=== PATIENT | female | born 1975 | race Caucasian/White ===

== ENCOUNTER 2017-12-17 09:09 | Emergency (ER) | payer MEDICAID ==
--- NOTE | 2017-12-17 09:55 | EDPHY ---
H & P Stated Complaint: méndez for several days/states has lump on top of head but is unsure how sh got Time Seen by Provider: 12/17/17 09:41 HPI/ROS: CHIEF COMPLAINT: Headache x4 days HISTORY OF PRESENT ILLNESS: 42-year-old homeless female currently visiting from [place], returning in a few days, history of chronic intermittent headaches, complaining of mid vertex headache "feels like there is a cylinder in my head". States that it feels similar to prior head injuries but she denies head injury. Denies palpable abnormality. Denies: Visual acuity changes, photophobia, audio phobia, nausea, vomiting, midline C-spine pain, peripheral paresthesia, weakness, numbness, gait instability, slurred speech PRIMARY CARE PROVIDER: REVIEW OF SYSTEMS: A ten point review of systems was performed and is negative with the exception of the items mentioned in the HPI PAST MEDICAL & SURGICAL HISTORY: Chronic intermittent headache. No exogenous estrogen use. SOCIAL HISTORY: Homeless. Nonsmoker. No drug or alcohol use. Returning to [place] in 2 days. PHYSICAL EXAM (Prior to examination, patient consented to physical exam, hands were washed and my usual and customary physical exam procedures followed) 1) GENERAL: Well-developed, well-nourished, alert and oriented. Appears to be in no acute distress. 2) HEAD: Normocephalic, atraumatic 3) HEENT: Pupils equal, round, reactive to light bilaterally. Sclera anicteric. Nasopharynx, oropharynx, clear, no lesions. Ears bilaterally with normal tympanic membranes. 4) NECK: Full range of motion, no meningeal signs. 5) LUNGS: Clear auscultation bilaterally, no wheezes, no rhonchi, no retractions. 6) HEART: Regular rate and rhythm, no murmur, no heave, no gallop. 7) ABDOMEN: No guarding, no rebound, no focal tenderness, negative McBurney's, negative Youngblood's, negative Rovsing's, negative peritoneal sign, 8) MUSCULOSKELETAL: Moving all extremities, no focal areas of tenderness, no obvious trauma. No peripheral edema or discoloration. 9) BACK: No CVA tenderness, no midline vertebral tenderness, no fluctuance, no step-off, no obvious trauma, no visual or palpable abnormality. 10) SKIN: No rash, no petechiae. 11) Psychiatric: Patient is oriented X 3, there is no agitation. 12) NEURO: Awake, alert, and oriented to person, place and time. Answers questions appropriately. There were no obvious focal neurologic abnormalities. No cerebellar dysfunction. Cranial nerves 2 through to 12 intact. Normal steady gait. Upper and lower extremities bilaterally with strength 5 / 5, reflexes 2+. DIFFERENTIAL DIAGNOSIS: In no particular order, including but not limited to subarachnoid hemorrhage, migraine headache, tension headache and infectious causes such as meningitis, pharyngitis and sinusitis. The patient understands that this diagnosis is provisional and can never be 100% accurate. Usual and customary warnings were given concerning the clinical impression and all the patient's questions were answered. The patient was instructed to return to the emergency department should her symptoms worsen or return, or develop any new symptoms, otherwise to followup as directed in discharge instructions. This is a partial list of diagnoses considered. These considerations are based on history, physical exam, past history and reassessment. - Personal History LMP (Females 10-55): 22-28 Days Ago Current Tetanus Diphtheria and Acellular Pertussis (TDAP): No - Medical/Surgical History Hx Asthma: No Hx Chronic Respiratory Disease: No Hx Diabetes: No Hx Cardiac Disease: No Hx Renal Disease: No Hx Cirrhosis: No Hx Alcoholism: No Hx HIV/AIDS: No Hx Splenectomy or Spleen Trauma: No Other PMH: denies - Social History Smoking Status: Never smoked Constitutional: Initial Vital Signs Temperature (C) 36.6 C 12/17/17 09:12 Heart Rate 70 12/17/17 09:12 Respiratory Rate 17 12/17/17 09:12 Blood Pressure 135/84 H 12/17/17 09:12 O2 Sat (%) 98 12/17/17 09:12 O2 Delivery Mode Room Air Allergies/Adverse Reactions: No Known Allergies Allergy (Unverified 12/17/17 09:12) Home Medications: Medication Instructions Recorded oxyCODONE/APAP 5/325 [Percocet 1 tab PO Q6 #3 tab 12/17/17 5/325] Medical Decision Making - Diagnostics Imaging Results: Imaging Impressions Head CT 12/17/17 09:52 Impression: Head CT within normal limits. Results called and discussed with Daisha Sanchez at 12/17/2017 10:55 General information for patients regarding this examination can be found at [email or web address]. If you have questions or comments about this report, please contact me at (hospital) or [phone] (cell). Imaging: Discussed imaging studies w/ director call Radiologist ED Course/Re-evaluation: 9:52 a.m.: Patient has a nonfocal neurologic exam with no evidence of trauma. I do not identify definitive indication for imaging studies however she is quite insistent that she wants CT of her head. Indications risks benefits were discussed with the patient. She consents. I believe her to have decision- making capacity. I have offered analgesia which she declines. 9:59 a.m.: Patient requesting analgesia. I offered IV or IM medication which she declines. Will administer oral Tylenol and Motrin. 11:01 a.m.: Re-evaluation, discussed her negative imaging. She notes continued pain after Tylenol and Motrin. She remains with a nonfocal exam. Offered further analgesia which she declines. She requests a prescription. This time I do not think that more advanced imaging such as MRI or contrast CT is indicated. Have recommended she follow up with her PCP when she returns to [place] in a few days. The meantime she has been given usual and customary head ache precautions instructions. She feels comfortable being discharged. All questions and concerns addressed by myself. I believe her to have decision- making capacity. - Data Points Medications Given: Discontinued Medications Acetaminophen (Tylenol) 1,000 mg PO EDNOW ONE Stop: 12/17/17 10:00 Last Admin: 12/17/17 10:08 Dose: 1,000 mg Ibuprofen (Motrin) 800 mg PO EDNOW ONE Stop: 12/17/17 10:01 Last Admin: 12/17/17 10:08 Dose: 800 mg Departure - Departure Disposition: Home, Routine, Self-Care Clinical Impression: Headache Qualifiers: Headache type: unspecified Headache chronicity pattern: acute headache Intractability: intractable Qualified Code(s): R51 - Headache Condition: Good Instructions: Acute Headache (ED) Additional Instructions: THANK YOU FOR YOUR VISIT TO OUR EMERGENCY DEPARTMENT (ED). YOU WERE SEEN TODAY BECAUSE OF A HEADACHE. YOU MAY HAVE HAD LAB TESTS, A CT SCAN, MRI OR EVEN A LUMBAR PUNCTURE (COMMONLY REFERRED TO A SPINAL TAP). WE CANNOT ALWAYS FIND THE EXACT CAUSE OF YOUR SYMPTOMS DURING YOUR VISIT TO THE ED. RETURN TO THE ED IMMEDIATELY IF YOUR HEADACHE WORSENS, IF YOU DEVELOP A FEVER, NECK PAIN OR NECK STIFFNESS, OR IF YOU BECOME CONFUSED OR ABNORMALLY DROWSY. Referrals: [facility],. [Clinic] - 1-2 days without fail Prescriptions: oxyCODONE/APAP 5/325 [Percocet 5/325] 1 tab PO Q6 #3 tab
[2017-12-17] MEDS ORDERED: ACETAMINOPHEN 500 MG TAB PO ONE (09:59)
[2017-12-17] MEDS ORDERED: IBUPROFEN 800 MG TAB PO ONE (10:00)
[2017-12-17 11:08] VITALS: BP 125/78
== END 2017-12-17 11:08 | disposition home or self-care (01) ==
DX: R51 Headache (principal)